=== PATIENT | female | born 1995 | race Caucasian/White ===

== ENCOUNTER 2018-06-28 19:23 | Emergency (ER) | payer MEDICAID ==
--- NOTE | 2018-06-28 19:53 | EDM.PDOC ---
ED HPI GENERAL MEDICAL PROBLEM - General Stated Complaint: HEADACHE JAW PAIN FEVER Time Seen by Provider: 06/28/18 19:23 Source of Information: Reports: Patient, Family History Limitations: Reports: No Limitations - History of Present Illness INITIAL COMMENTS - FREE TEXT/NARRATIVE: 23 y.o.w.jose l came with her family to the ed due to a running nose and tooth pain for a few days. Pt thinks hwe r wisdom teeth may be the reason why she has dental pain. The main reason why she came to the ed was her running nose. No N/V /D no dizziness or any other acute medical issues. BP 101/74 RR 17 Pulse ox 97 % on RA Temp 37.1 Pulse 105 Onset Date: 06/28/18 Onset Time: 07:00 Duration: Hour(s):, Intermittent Location: Reports: Face Quality: Reports: Ache, Burning, Dull Severity: Moderate Improves with: Reports: Medication Worsens with: Reports: None Context: Reports: Sick Contact Associated Symptoms: Reports: No Other Symptoms Treatments MAID CLEANING COOKING: Reports: Acetaminophen both jaw pain Pain Score (Numeric/FACES): 5 - Related Data Allergies Allergy/AdvReac Type Severity Reaction Status Date / Time No Known Allergies Allergy Verified 06/28/18 19:57 Home Meds: Home Meds NK [No Known Home Meds] 06/28/18 [History] ED ROS ENT - Review of Systems Review Of Systems: See Below Constitutional: Reports: No Symptoms HEENT: Reports: Dental Pain, Rhinitis Respiratory: Reports: No Symptoms Cardiovascular: Reports: No Symptoms Endocrine: Reports: No Symptoms GI/Abdominal: Reports: No Symptoms : Reports: No Symptoms Musculoskeletal: Reports: No Symptoms Skin: Reports: No Symptoms Neurological: Reports: No Symptoms Psychiatric: Reports: No Symptoms Hematologic/Lymphatic: Reports: No Symptoms Immunologic: Reports: No Symptoms ED EXAM, ENT - Physical Exam Exam: See Below Exam Limited By: No Limitations General Appearance: Alert, WD/WN, Mild Distress Eye Exam: Bilateral Eye: Normal Inspection Ears: Normal External Exam, Normal Canal, Hearing Grossly Normal Nose: Normal Mucousa, No Blood, Clear Rhinorrhea Mouth/Throat: Normal Inspection, Normal Gums, Normal Lips, Normal Oropharynx Head: Atraumatic, Normocephalic Neck: Normal Inspection, Supple, Non-Tender, Full Range of Motion Respiratory/Chest: No Respiratory Distress, Lungs Clear, Normal Breath Sounds, No Accessory Muscle Use, Chest Non-Tender Cardiovascular: Normal Peripheral Pulses, Regular Rate, Rhythm, No Edema, No Gallop, No JVD, No Murmur, No Rub GI/Abdominal: Normal Bowel Sounds, Soft, Non-Tender, No Organomegaly, No Distention, No Abnormal Bruit, No Mass, Pelvis Stable (Female) Exam: Deferred Rectal (Female) Exam: Deferred Back: Normal Inspection Extremities: Normal Inspection Neurological: Alert, Oriented, CN II-XII Intact, Normal Cognition, Normal Gait, Normal Reflexes, No Motor/Sensory Deficits Psychiatric: Normal Affect, Normal Mood Skin: Warm, Dry, Intact, Normal Color, No Rash Lymphatic: No Adenopathy Course - Vital Signs Text/Narrative:: 23 y.o.w.f came with her family to the ed due to a running nose and tooth pain for a few days. Pt thinks hwe r wisdom teeth may be the reason why she has dental pain. The main reason why she came to the ed was her running nose. No N/V /D no dizziness or any other acute medical issues. BP 101/74 RR 17 Pulse ox 97 % on RA Temp 37.1 Pulse 105 PE: WNWD W F with a running nose Labs: Refused tests Impression: Viral syndrome DDX: Influenza, RASV etc Tx: None Reexam: Pt was doing fine in te ED Plan: D/C with instructions Last Recorded V/S: Last Vital Signs Temp 37.4 C 06/28/18 19:23 Pulse 105 H 06/28/18 19:23 Resp 17 06/28/18 19:23 BP 101/74 06/28/18 19:23 Pulse Ox 96 06/28/18 19:23 Departure - Departure Time of Disposition: 20:01 Disposition: Home, Self-Care 01 Condition: Good Clinical Impression: Viral syndrome - Discharge Information Instructions: Viral Illness, Adult Referrals: Toribio Bledsoe PA [Primary Care Provider] - Forms: ED Department Discharge Additional Instructions: Please take tylenol/motrin for pain and temp. please increase water intake, please f/u, come back if your symptoms get worse acutely
== END 2018-06-28 20:06 | disposition home or self-care (01) ==
LOC: FB.ED 19:23
DX: B34.9 Viral infection, unspecified (principal)
CPT/HCPCS: 99283